=== PATIENT | female | born 1980 | race Caucasian/White ===

== ENCOUNTER → 2018-08-10 13:31 | Outpatient (CLI) | payer OTHER, MEDICAID, SELFPAY ==
--- NOTE | 2018-08-10 | DI.RAD.S_ITS ---
PROCEDURE: XR LUMBAR SPINE MIN 4V INDICATIONS: LUMBAR BACK PAIN W/RADICULOPATHY TECHNIQUE: 5 views of the lumbar spine acquired. COMPARISON: None. FINDINGS: Bones: 5 nonrib-bearing vertebrae are present. There is normal bony alignment. No vertebral body compression fractures. No suspicious bony lesions. There is moderate disc space narrowing at L3-L4 and L5-L5. Mild facet arthropathy at L4-L5 and L5-S1. Soft tissues: Overlying bowel gas pattern is normal. No suspicious soft tissue calcifications. Flexion/extension: There is decreased range of motion on flexion, with preserved normal alignment. IMPRESSION: 1. Mild degenerative disc and facet disease. 2. Decreased range of motion. Dictated by: Reginald Alvarenga M.D. on 08/10/2018 at 17:08 Approved by: Reginald Alvarenga M.D. on 08/10/2018 at 17:11
== END ==
PROVIDERS: Visit Provider Internal Medicine
DX: M51.16 Intervertebral disc disorders with radiculopathy, lumbar region (principal); M47.26 Other spondylosis with radiculopathy, lumbar region
CPT/HCPCS: 72110

== ENCOUNTER → 2018-09-14 13:46 | Outpatient (CLI) | payer OTHER, MEDICAID, SELFPAY ==
--- NOTE | 2018-09-14 | DI.ECHO.S_ITS ---
[facility] [facility]---------+ [facility] +---------+ : : [address] : : : : [id number] : : : : Phone: [phone] Echocardiogram Report + + :Name: SUE CORTEZ Study Date: 09/14/2018 Height: 67 in : :[facility] Exam Location: IS Weight: 241 lb : : Gender: Female BSA: 2.2 m2 : :: 1980 Age: 38 yrs BP: 110/80 mmHg: :Reason For Study: localized edema : :Ordering Physician: Dr. White : :Dino Performed By: Cecelia Page : + + Interpretation Summary The ejection fraction is estimated to be 60-65%. The right ventricle is borderline dilated. There is no significant valvular heart disease. Procedure: A two-dimensional transthoracic echocardiogram with color flow and Doppler was performed. The study quality was technically adequate. There is no prior echocardiogram noted for this patient. The patient was in normal sinus rhythm during the exam. Left Ventricle: The left ventricle is normal in size, wall thickness, and systolic function without any focal wall motion abnormalities. The ejection fraction is estimated to be 60-65%. Left ventricular wall motion is normal. Right Ventricle: The right ventricle is borderline dilated. The right ventricular systolic function is normal. Atria: The left atrium is moderately dilated. Right atrial size is normal. There is no Doppler evidence for an interatrial shunt. Mitral Valve: The mitral valve is normal in structure but abnormal in function. There is no mitral regurgitation noted. Aortic Valve: The aortic valve is trileaflet. The aortic valve opens well. No aortic regurgitation is present. Tricuspid Valve: The tricuspid valve is normal in structure and function. There is a trace or physiologic amount of tricuspid regurgitation. Pulmonary artery pressures cannot be estimated because of the lack of a measurable TR jet velocity. Pulmonic Valve: The pulmonic valve is not well visualized. There is trace pulmonic regurgitation. Great Vessels: The aortic root is normal size. The ascending aorta is normal in size. The pulmonary artery is not well visualized, but is probably normal size. Pericardium/ Pleura There is no pericardial effusion. There is no pleural effusion. MMode/2D Measurements & Calculations LVIDd: 5.4 cm LVOT diam: 2.1 cm EPSS: 0.16 cm Ao root diam: 3.2 cm IVSd: 0.70 cm asc Aorta Diam: 3.1 cm LVPWd: 0.85 cm LV rodríguez. diameter/BSA (cm/m^2): 2.5 LA A2 area: 24.3 cm2 RA long axis: 5.1 cm LA A4 area: 27.3 cm2 RA area: 19.6 cm2 LA length (vol): 6.0 cm RA vol: 64.2 ml LA vol: 93.9 ml RA : 29.3 ml/m2 LA vol index: 42.9 ml/m2 RVD1 (basal): 4.4 cm Doppler Measurements & Calculations Ao V2 max: 165.1 cm/sec LVOT Max Julio: 124.5 cm/sec Ao V2 mean: 115.9 cm/sec LV V1 max P.2 mmHg Ao max P.9 mmHg LV V1 VTI: 19.2 cm Ao mean P.9 mmHg FAYE(I,D): 2.5 cm2 Ao V2 VTI: 25.7 cm FAYE(V,D): 2.5 cm2 sev ratio: 0.75 FAYE indexed to BSA (cm^2/m^2): 1.2 MV E max julio: 90.7 cm/sec PA V2 max: 87.7 cm/sec MV A max julio: 75.7 cm/sec PA V2 mean: 61.2 cm/sec MV E/A: 1.2 PA mean P.7 mmHg Med Peak E' Julio: 8.6 cm/sec PA Accel Time: 0.11 sec E/E' med: 10.6 Lat Peak E' Julio: 11.1 cm/sec E/E' lat: 8.1 E/e' average: 9.4 MV dec time: 0.17 sec MV P1/2t: 48.3 msec MV P1/2t max julio: 90.4 cm/sec SV(LVOT): 64.9 ml MVA(P1/2t): 4.6 cm2 Reading Physician:04:15 PM
== END ==
PROVIDERS: PCP Hospitalist; Visit Provider Internal Medicine
DX: R60.0 Localized edema (principal); I10 Essential (primary) hypertension
CPT/HCPCS: 93306

== ENCOUNTER → 2018-12-08 16:47 | Outpatient (CLI) | payer OTHER, MEDICAID, SELFPAY ==
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
== END ==
PROVIDERS: PCP Hospitalist; Visit Provider Physician Assistant
DX: S67.21XA Crushing injury of right hand, initial encounter (principal); S61.411A Laceration without foreign body of right hand, initial encounter; X58.XXXA Exposure to other specified factors, initial encounter
CPT/HCPCS: 73140

== ENCOUNTER 2020-05-20 16:07 | Emergency (ER) | payer OTHER, MEDICAID, SELFPAY ==
[2020-05-20] VITALS (7 sets, daily range): BP systolic 140–154; BP diastolic 88–99; PULSE 70–77; RESP 20–41; TEMP 36.4–36.7; O2SAT 96–99
--- NOTE | 2020-05-20 16:22 | DI.RAD.S_ITS ---
PROCEDURE: XR CHEST 2V INDICATIONS: shortness of breath TECHNIQUE: 2 views of the chest were acquired. COMPARISON: [facility], CR, XR CHEST 2VW, 07/27/2015, 10:40. FINDINGS: Surgical changes and devices: None. Lungs and pleura: There is elevation of the left hemidiaphragm raising the suspicion for a sub pulmonic effusion. No pulmonary consolidation. No pneumothorax. Mediastinum: Mediastinal contours are normal. Heart size is normal. Bones and chest wall: No suspicious bony abnormalities. Soft tissues appear unremarkable. IMPRESSION: Elevation of the left hemidiaphragm suggesting sub pulmonic effusion. No prior comparisons are available to determine the acuity of this finding. Dictated by: Lorraine Damico M.D. on 05/20/2020 at 15:53 Approved by: Lorraine Damico M.D. on 05/20/2020 at 15:54
[2020-05-20 17:06] LABS: Add Manual Diff / Slide Review NO; Basophils Absolute Auto 0 /uL (0-100); Basophils Percent Auto 0.8 % (0-2); Eosinophils Absolute Auto 100 /uL (0-450); Eosinophils Percent Auto 3.9 % (2-4); Hematocrit 28.8 % (36-46); Hemoglobin 9.6 g/dL (12.0-16.0); Lymphocytes Absolute Auto 700 /uL (1100-4500); Lymphocytes Percent Auto 23.8 % (25-40); Mean Corpuscular HGB Conc 33.5 % (30-36); Mean Corpuscular Hemoglobin 30.1 PG (26-34); Mean Corpuscular Volume 89.9 fL (80-100); Monocytes Absolute Auto 300 /uL (0-900); Monocytes Percent Auto 11.5 % (3-14); Neutrophils Absolute Auto 1700 /uL (1500-7000); Platelet Count 153 X10^3/uL (150-400); Red Cell Distribution Width 13.7 % (11.6-14.8); White Blood Cell Count 2.9 X10^3/uL (4.5-11.0)
[2020-05-20 17:23] LABS: Lactate (Lactic Acid) 0.6 mmol/L (0.7-2.1)
[2020-05-20 17:24] LABS: Alanine Aminotransferase 14 IU/L (<35); Albumin 3.8 g/dL (3.5-5.0); Albumin Globulin Ratio 1.1 (1.0-2.8); Alkaline Phosphatase 109 U/L (38-126); Aspartate Aminotransferase 25 IU/L (14-36); BUN Creatinine Ratio 26.7 (6-22); Bilirubin Total 0.3 mg/dL (0.2-1.3); Blood Urea Nitrogen 12 mg/dL (7-17); Calcium 8.6 mg/dL (8.4-10.2); Carbon Dioxide 29 mmol/L (22-32); Chloride 106 mmol/L (98-107); Estimated Glomerular Filt Rate > 60.0 mL/min (>60); Globulin 3.6 g/dL (1.7-4.1); Glucose 103 mg/dL (70-100); HEMOLYSIS < 15 (0-50); Potassium 3.7 mmol/L (3.4-5.1); Sodium 138 mmol/L (137-145); Total Protein 7.4 g/dL (6.3-8.2)
--- NOTE | 2020-05-20 17:45 | DI.CT.S_ITS ---
PROCEDURE: CT ANGIO CHEST PE PROTOCOL INDICATIONS: Post op shortness of breath TECHNIQUE: After the administration of intravenous contrast, 2 mm thick sections acquired from the pulmonary apices to the posterior costophrenic angles. 3-dimensional maximum intensity projection (MIP) coronal and sagittal reformats were then acquired through the thorax. For radiation dose reduction, the following was used: automated exposure control, adjustment of mA and/or kV according to patient size. COMPARISON: None. FINDINGS: Image quality: Excellent. Pulmonary arteries: Pulmonary arteries are normal in size, and demonstrate no intraluminal filling defects to suggest central pulmonary embolism. Lungs and pleura: Left lower lobe atelectasis and consolidation. Lungs are otherwise clear. No pleural effusions or pneumothorax. Central and peripheral airways are patent. Mediastinum: Heart size is normal, without pericardial effusion. No mediastinal or hilar adenopathy. Thoracic aorta is normal in caliber and enhancement. Esophagus is normal in caliber, without hiatal hernia. Bones and chest wall: No suspicious bony lesions. Ribs and thoracic spine appear intact throughout. Thyroid gland is normal. No axillary or supraclavicular adenopathy. 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 IMPRESSION: No findings of pulmonary embolism. Left lower lobe atelectasis with an element of consolidation, potentially postoperative atelectasis although pneumonia cannot be excluded on the basis of imaging. 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 Dictated by: Con Newell M.D. on 05/20/2020 at 18:28 Approved by: Con Newell M.D. on 05/20/2020 at 18:34
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
[2020-05-20] MEDS: ONDANSETRON 4 MG ODT PREPACK 1 BOTTLE MISC (19:23)
[2020-05-20] MEDS: levoFLOXacin 250 MG TABLET 750 MG PO (19:23)
== END 2020-05-20 19:27 | disposition home or self-care (01) ==
PROVIDERS: Emergency Provider Emergency Medicine; PCP Hospitalist
DX: J18.9 Pneumonia, unspecified organism (principal); I10 Essential (primary) hypertension; E66.01 Morbid (severe) obesity due to excess calories; Z68.41 Body mass index [BMI] 40.0-44.9, adult
CPT/HCPCS: 36415; 71046; 71275; 80053; 83605; 85025; 93005; 99283; 99284

== ENCOUNTER → 2020-05-25 14:10 | Outpatient (ROUT) | payer OTHER, MEDICAID, SELFPAY ==
[2020-05-25 14:28] LABS: Estimated Glomerular Filt Rate > 60.0 mL/min (>60)
[2020-05-25 14:32] LABS: Vancomycin Trough 13.6 ug/mL (10-20)
== END ==
PROVIDERS: PCP Hospitalist; Visit Provider Internal Medicine Infectious Disease
DX: M86.172 Other acute osteomyelitis, left ankle and foot (principal)
CPT/HCPCS: 80202; 82565

== ENCOUNTER → 2020-11-15 10:06 | Outpatient (CLI) | payer OTHER, MEDICAID, SELFPAY ==
--- NOTE | 2020-11-15 10:16 | DI.CT.S_ITS ---
PROCEDURE: CT SINUS SCREEN WO CON INDICATIONS: Chronic pansinusitis TECHNIQUE: Noncontrast 3.0 mm axial images acquired from the frontal sinuses to the mid-sella, with coronal and sagittal reformats. For radiation dose reduction, the following was used: automated exposure control, adjustment of mA and/or kV according to patient size. COMPARISON: None. FINDINGS: Maxillary Sinuses: The maxillary sinuses are clear without significant mucosal thickening or air-fluid levels. The ostiomeatal units are patent bilaterally. No significant Alexandra ethmoid air cells present along the inferior medial orbital harris. Sphenoid Sinuses: The sphenoethmoidal recesses are patent and unobstructed. The sphenoid sinuses are clear. Sphenoid pneumatization pattern is post-sellar, extending beyond the dorsum sella to the dorsal cortex of the clivus. No [place] or sphenoethmoidal air cells present. The optic nerve is well covered. Frontal Sinuses: The frontal recesses are both patent. The frontal sinuses are clear. Ethmoid Sinuses: The ethmoid air cells are clear without significant mucosal thickening or air-fluid levels. The fovea ethmoidalis and cribriform plate are unremarkable. The lamina papyracea are both structurally intact. Lateral lamella are symmetric. Nasal Cavity and Septum: Nasal turbinates unremarkable without pneumatization. Cartilaginous and osseous components of the nasal septum intact and midline without perforation. There is incidental paradoxical curvature right middle turbinate anteriorly. Skull Base: The anterior cranial fossa and pituitary sella are unremarkable. No evidence of bony dehiscence. Both osseous orbits and contents are within normal limits. IMPRESSION: 1. Unremarkable CT sinus Dictated by: Lewis Stokes M.D. on 11/15/2020 at 14:24 Approved by: Lewis Stokes M.D. on 11/15/2020 at 14:29
== END ==
PROVIDERS: Referring Provider Otolaryngology; Visit Provider Otolaryngology
DX: J32.4 Chronic pansinusitis (principal)
CPT/HCPCS: 70486

== ENCOUNTER → 2021-08-11 15:41 | Outpatient (CLI) | payer OTHER, MEDICAID, SELFPAY ==
--- NOTE | 2021-08-11 | DI.CT.S_ITS ---
PROCEDURE: CT LE LT W CON INDICATIONS: Displaced fracture of body of left talus TECHNIQUE: Noncontrast 1-1.5 mm axial sections acquired from above the tibiotalar joint to the bottom of the calcaneus, with coronal and sagittal reformats. COMPARISON: None. FINDINGS: Image quality: Significant beam hardening artifact from the patient's ankle hardware. Bones: Diffuse osteopenia. Cortical irregularity of the distal tibia, which may reflect fibrocystic change. Extensive surgical hardware in the mid and hindfoot as well as distal fibula without evidence of hardware compromise. Tibiotalar intra-articular bodies. Interval of hardware removal in the cuneiform. Soft tissues: Pretibial soft tissue edema. Prominent varicosities are seen. The Achilles tendon appears intact. 6.3 mm calcification of the posterior, medial plantar fascia. Fat attenuation lesion within the flexor digitorum brevis, compatible intramuscular lipoma. IMPRESSION: 1. Extensive postsurgical change of the mid and hindfoot without evidence of hardware compromise. 2. Tibiotalar intra-articular bodies. 3. Cortical irregularity of the distal tibia, which may reflect fibrocystic or erosive change. 4. 6.3 mm calcification within the posterior, medial plantar fascia. Dictated by: Lee Lucas M.D. on 08/11/2021 at 19:14 Approved by: Lee Lucas M.D. on 08/11/2021 at 19:22
== END ==
PROVIDERS: Referring Provider Orthopaedic Surgery; Visit Provider Orthopaedic Surgery
DX: S92.122 Displaced fracture of body of left talus (principal); M24.072 Loose body in left ankle
CPT/HCPCS: 73700

== ENCOUNTER → 2021-08-26 15:16 | Outpatient (CLI) | payer OTHER, MEDICAID, SELFPAY ==
[2021-08-26 15:49] LABS: COVID19 -Nasal RAPID Negative (Negative)
== END ==
PROVIDERS: Visit Provider Student in an Organized Health Care Education/Training Program
DX: Z20.822 Contact with and (suspected) exposure to COVID-19 (principal)
CPT/HCPCS: 87635

== ENCOUNTER 2022-04-07 08:41 | Emergency (ER) | payer OTHER, MEDICAID, SELFPAY ==
[2022-04-07] VITALS (7 sets, daily range): BP systolic 98–114; BP diastolic 61–68; PULSE 82–104; RESP 16–41; TEMP 35.9; O2SAT 94–99; BMI 47.0
--- NOTE | 2022-04-07 08:41 | DI.CT.S_ITS ---
PROCEDURE: CT HEAD/BRAIN WO CON INDICATIONS: seizure, hx seizure d/o TECHNIQUE: Noncontrast 4.5 mm thick angled axial sections acquired from the foramen magnum to the vertex, with coronal and sagittal reformats. For radiation dose reduction, the following was used: automated exposure control, adjustment of mA and/or kV according to patient size. COMPARISON: Outside Film, CT, CT HEAD WITHOUT CONTRAST, 04/02/2020, 8:34. FINDINGS: Image quality: Excellent. CSF spaces: Stable findings. Basal cisterns are patent. No extra-axial fluid collections. The ventricles are symmetric in size and shape. Numerous junky calcifications/ossifications along the falx as well as extra-axial bilateral middle cranial fossa calcifications/ossifications, a benign finding. Brain: Stable findings. No intracranial bleeds or masses. There is cerebral volume loss for age, with resultant ventricular and sulcal prominence. There are periventricular and deep white matter chronic small vessel ischemic changes. There is intracranial internal carotid artery atherosclerosis. Skull and face: Calvarium and visualized facial bones appear intact, without suspicious lesions. Sinuses: Visualized sinuses and mastoids are clear. IMPRESSION: Stable findings. No evidence of acute intracranial process. Dictated by: Stanislav Godfrey M.D. on 04/07/2022 at 9:31 Approved by: Stanislav Godfrey M.D. on 04/07/2022 at 9:34
--- NOTE | 2022-04-07 08:43 | DI.RAD.S_ITS ---
PROCEDURE: XR CHEST 1V INDICATIONS: seizure activity TECHNIQUE: One view of the chest was acquired. COMPARISON: [facility], CR, XR CHEST 2 VIEWS, 08/25/2021, 9:35. FINDINGS: Surgical changes and devices: None. Lungs and pleura: Lungs are clear. No pleural effusions or pneumothorax. Left hemidiaphragm elevation similar to prior study. Mediastinum: Mediastinal contours appear normal. Heart size is normal. Bones and chest wall: No suspicious bony lesions. Overlying soft tissues appear unremarkable. IMPRESSION: No acute cardiopulmonary process demonstrated radiographically. Dictated by: Con Newell M.D. on 04/07/2022 at 10:06 Approved by: Con Newell M.D. on 04/07/2022 at 10:06
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
[2022-04-07 09:04] LABS: Add Manual Diff / Slide Review NO; Basophils Absolute Auto 0 /uL (0-100); Basophils Percent Auto 0.8 % (0-2); Eosinophils Absolute Auto 100 /uL (0-450); Eosinophils Percent Auto 2.3 % (2-4); Hematocrit 38.1 % (36-46); Hemoglobin 12.9 g/dL (12.0-16.0); Lymphocytes Absolute Auto 1700 /uL (1100-4500); Lymphocytes Percent Auto 32.6 % (25-40); Mean Corpuscular HGB Conc 33.8 % (30-36); Mean Corpuscular Hemoglobin 30.4 PG (26-34); Mean Corpuscular Volume 89.8 fL (80-100); Monocytes Absolute Auto 500 /uL (0-900); Monocytes Percent Auto 8.9 % (3-14); Neutrophils Absolute Auto 2800 /uL (1500-7000); Neutrophils Percent Auto 55.4 % (50-75); Platelet Count 149 X10^3/uL (150-400); Red Blood Cell Count 4.24 X10^6/uL (4.0-5.2); Red Cell Distribution Width 13.7 % (11.6-14.8); White Blood Cell Count 5.1 X10^3/uL (4.5-11.0)
[2022-04-07] MEDS: levETIRAcetam 1,000 MG in SODIUM CHLORIDE 0.9% 100 ML 440 MG IV (09:14)
[2022-04-07] MEDS: SODIUM CHLORIDE 0.9% 1,000 ML 1000 ML IV (09:14)
[2022-04-07 09:24] LABS: Alanine Aminotransferase 23 IU/L (<35); Albumin 4.1 g/dL (3.5-5.0); Albumin Globulin Ratio 1.2 (1.0-2.8); Alkaline Phosphatase 78 U/L (38-126); Aspartate Aminotransferase 27 IU/L (14-36); BUN Creatinine Ratio 25.3 (6-22); Bilirubin Total 0.4 mg/dL (0.2-1.3); Blood Urea Nitrogen 20 mg/dL (7-17); Calcium 8.3 mg/dL (8.4-10.2); Carbon Dioxide 23 mmol/L (22-32); Chloride 104 mmol/L (98-107); Estimated Glomerular Filt Rate > 60 mL/min (>60); Ethanol (ETOH) < 10 mg/dL; Globulin 3.4 g/dL (1.7-4.1); Glucose 148 mg/dL (70-100); HEMOLYSIS < 15 (0-50); Magnesium 1.6 mg/dL (1.6-2.3); Potassium 3.9 mmol/L (3.4-5.1); Sodium 139 mmol/L (137-145); Total Protein 7.5 g/dL (6.3-8.2)
[2022-04-07] MEDS: ACETAMINOPHEN 325 MG TABLET 975 MG PO (09:36)
[2022-04-07] MEDS: IBUPROFEN 400 MG TABLET 800 MG PO (09:36)
[2022-04-07 09:40] LABS: Prolactin 17.9 ng/mL (3.0-18.6)
[2022-04-07 10:27] LABS: UR Morphine/Opiate cutoff 300 Negative (Negative); Ur Creatinine Normal (Normal); Ur Specific Gravity Normal (Normal); Urine Amphetamines Negative (Negative); Urine Barbiturates Negative (Negative); Urine Benzodiazepines Negative (Negative); Urine Cocaine Negative (Negative); Urine MDMA Negative (Negative); Urine Methadone Negative (Negative); Urine Methamphetamines Negative (Negative); Urine Oxycodone Negative (Negative); Urine Phencyclidine Negative (Negative); Urine Tetrahydrocannabinol Negative (Negative); Urine Tricyclic Antidepressant Negative (Negative); Urine pH Normal (Normal)
== END 2022-04-07 11:20 | disposition home or self-care (01) ==
PROVIDERS: Emergency Provider Emergency Medicine
DX: G40.909 Epilepsy, unspecified, not intractable, without status epilepticus (principal); R00.0 Tachycardia, unspecified
CPT/HCPCS: 36415; 70450; 71045; 80053; 80305; 80320; 81003; 83735; 84146; 85025; 93005; 96365; 99284; J1953

== ENCOUNTER 2024-07-04 09:07 | Emergency (ER) | payer OTHER, SELFPAY ==
[2024-07-04 09:42] VITALS: BP 171/95; PULSE 60; RESP 60; TEMP 36.6; O2SAT 97; BMI 47.0
== END 2024-07-04 10:45 | disposition left against medical advice (07) ==
PROVIDERS: Emergency Provider Emergency Medicine
DX: R22.0 Localized swelling, mass and lump, head (principal)
CPT/HCPCS: 99281

== ENCOUNTER 2025-03-22 10:38 | Emergency (ER) | payer MEDICARE, MEDICAID, SELFPAY ==
[2025-03-22] VITALS (7 sets, daily range): BP systolic 99–109; BP diastolic 65–69; PULSE 62–72; RESP 12–34; TEMP 36.7; O2SAT 95–100; BMI 39.1
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
== END 2025-03-22 12:50 | disposition home or self-care (01) ==
PROVIDERS: Emergency Provider Emergency Medicine
DX: G40.919 Epilepsy, unspecified, intractable, without status epilepticus (principal); Z99.2 Dependence on renal dialysis
CPT/HCPCS: 36415; 99283; 99284